=== PATIENT | male | born 1995 | race Hispanic/Latino ===

== ENCOUNTER 2022-09-28 07:44 | Emergency (ER) | payer BC, MEDICAID, OTHER ==
[~2022-09-28] VITALS: Ht 198.1 cm; Wt 154.2 kg
[2022-09-28] MEDS ORDERED: IBUP-2077 PO (10:08)
[2022-09-28] MEDS ORDERED: ONDA4TAB10 PO (10:08)
[2022-09-28 10:28] VITALS: BP 119/69
[2022-09-28] MEDS ORDERED: IBUPROFEN 800 MG TAB PO ONE (10:30)
== END 2022-09-28 10:28 | disposition home or self-care (01) ==
LOC: EDH 07:44
DX: U07.1 COVID-19 (principal); B34.9 Viral infection, unspecified; Z88.1 Allergy status to other antibiotic agents
CPT/HCPCS: 99283; 87635; 87804 ×2; C9803